=== PATIENT | male | born 1965 | race Two or more races ===

== ENCOUNTER 2024-12-04 18:29 | Inpatient (IN) | payer MEDICARE, OTHER ==
[~2024-12-04] VITALS: Ht 172.7 cm; Wt 65.0 kg
[2024-12-04] MEDS ORDERED: CARV25TA32 PO (20:00)
[2024-12-04] MEDS ORDERED: HYDR-4061 PO (20:00)
[2024-12-04] MEDS ORDERED: PANT20TA18 PO (20:00)
[2024-12-04] MEDS ORDERED: ROSU10TA72 PO (20:00)
[2024-12-04] MEDS ORDERED: DOCU-119 PO (20:01)
[2024-12-04] MEDS ORDERED: GABA-1216 PO (20:02)
[2024-12-04 20:24] LABS: BASOPHILS % (AUTO) 0.4 % (0.0-2.0); EOSINOPHILS % (AUTO) 12.3 % (1.0-6.0); HEMATOCRIT 28.7 % (41-53); HEMOGLOBIN 9.4 g/dL (13.5-17.5); LYMPHOCYTES # (AUTO) 0.7 K/uL (1.0-4.8); LYMPHOCYTES % (AUTO) 11.6 % (22.0-44.0); MEAN CORPUSCULAR HEMOGLOBIN 30.8 pg (26.0-34.0); MEAN CORPUSCULAR HGB CONC 32.9 G/dL (31.0-37.0); MEAN CORPUSCULAR VOLUME 94 fL (80-100); MONOCYTES # (AUTO) 0.5 K/uL (0.1-1.0); MONOCYTES % (AUTO) 8.6 % (2.0-9.0); NEUTROPHILS # (AUTO) 3.8 K/uL (1.8-7.7); NEUTROPHILS % (AUTO) 67.1 % (40.0-70.0); PLATELET COUNT (AUTO) 220 K/uL (150-450); RED BLOOD CELL COUNT(AUTO) 3.06 MIL/uL (4.50-5.90); WHITE BLOOD COUNT (AUTO) 5.7 K/uL (4.5-11.0)
[2024-12-04 20:26] LABS: ERYTHROCYTE SEDIMENTATION RATE 35 MM/HR (0-20)
[2024-12-04 20:33] LABS: ANION GAP 5 mmol/L (8-16); CALCIUM, TOTAL 9.1 mg/dL (8.8-10.5); CARBON DIOXIDE 35 mmol/L (22-29); CHLORIDE 94 mmol/L (98-107); CREATININE 3.16 mg/dL (0.60-1.30); GLOMERULAR FILTR. RATE CALC 20 mL/min (>60); GLUCOSE,RANDOM 106 mg/dL (70-110); POTASSIUM 3.9 mmol/L (3.5-5.1); SODIUM SERUM 134 mmol/L (136-145); UREA NITROGEN, BLOOD 31 mg/dL (7-18)
[2024-12-04 20:42] LABS: LACTIC ACID 0.6 mmol/L (0.4-2.0)
[2024-12-04] MEDS ORDERED: COLL30OI TP (20:43)
[2024-12-04] MEDS ORDERED: OXYC5TAB3 PO (20:43)
[2024-12-04] MEDS ORDERED: SEVE800T27 PO (20:43)
[2024-12-04] MEDS ORDERED: CLOP75TA32 PO (20:43)
[2024-12-04] MEDS ORDERED: AMLO10TA55 PO (20:43)
[2024-12-04] MEDS ORDERED: VANCOMYCIN 1GM/WATER(PEG/NADA) 200 ML IV ONE (20:45)
[2024-12-04] MEDS: PIPERACILLIN SODIUM/TAZOBACTAM 2.25 GM in DEXTROSE 5%-WATER 50 ML IV SCH (21:31)
[2024-12-04] MEDS: VANCOMYCIN HCL 1 GM/D5% WATER 200 ML IV ONE (21:31)
[2024-12-05] MEDS ORDERED: ONDANSETRON HCL 4 MG/2 ML VIAL IVP PRN (00:30)
[2024-12-05] MEDS ORDERED: 0.9% SODIUM CHLORIDE 10 ML SYRINGE IVP PRN (00:30)
[2024-12-05] MEDS ORDERED: VANCOMYCIN HCL 1 GM in DEXTROSE 5%-WATER 250 ML IV PRN (01:15)
[2024-12-05 02:41] VITALS: BP 143/80; PULSE 88; RESP 16; TEMP 97.7; O2SAT 100
[2024-12-05] MEDS ORDERED: SIME80TA12 PO (07:00)
[2024-12-05] MEDS ORDERED: CLOP75TA60 PO (07:00)
[2024-12-05] MEDS ORDERED: OXYC10TA48 PO (07:00)
[2024-12-05] MEDS ORDERED: MELA5TAB21 PO (07:03)
[2024-12-05] MEDS ORDERED: LORA-1000 PO (07:03)
[2024-12-05] MEDS: AmLODIPine BESYLATE 10 MG TABLET PO SCH (08:00)
[2024-12-05] MEDS: CARVEDILOL 25 MG TABLET PO SCH (08:00)
[2024-12-05] MEDS: DOCUSATE SODIUM 100 MG CAPSULE PO SCH (08:00)
[2024-12-05] MEDS: CLOPIDOGREL BISULFATE 75 MG TABLET PO SCH (08:00)
[2024-12-05] MEDS: ROSUVASTATIN CALCIUM 10 MG TABLET PO SCH (08:00)
[2024-12-05] MEDS: SEVELAMER CARBONATE 800 MG TABLET PO SCH (08:00)
[2024-12-05 08:16] LABS: CALCIUM, TOTAL 8.8 mg/dL (8.8-10.5); CREATININE 4.1 mg/dL (0.60-1.30); POTASSIUM 4.3 mmol/L (3.5-5.1); VANCOMYCIN,RANDOM 17.3 mcg/mL (25.0-50.0)
[2024-12-05] MEDS ORDERED: PANTOPRAZOLE 20MG TABLET PO SCH (09:00)
[2024-12-05 09:27] VITALS: BP 123/73; PULSE 85; RESP 19; TEMP 98.3; O2SAT 96
[2024-12-05] MEDS: PIPERACILLIN SODIUM/TAZOBACTAM 2.25 GM in DEXTROSE 5%-WATER 50 ML IV SCH (15:26)
[2024-12-05] MEDS: GABAPENTIN 100 MG CAPSULE PO SCH (20:44)
[2024-12-05 20:46] VITALS: BP 128/58; PULSE 84; RESP 18; TEMP 97.7; O2SAT 98
[2024-12-06 04:03] VITALS: BP 128/63; PULSE 86; RESP 16; TEMP 98; O2SAT 95
[2024-12-06 07:18] LABS: HEMOGLOBIN A1C 4.1 % (3.8-5.6)
[2024-12-06 07:21] LABS: BASOPHILS % (AUTO) 0.7 % (0.0-2.0); HEMATOCRIT 24.6 % (41-53); HEMOGLOBIN 8.4 g/dL (13.5-17.5); LYMPHOCYTES # (AUTO) 0.6 K/uL (1.0-4.8); LYMPHOCYTES % (AUTO) 10.5 % (22.0-44.0); MEAN CORPUSCULAR HEMOGLOBIN 31.9 pg (26.0-34.0); MEAN CORPUSCULAR HGB CONC 33.9 G/dL (31.0-37.0); MEAN CORPUSCULAR VOLUME 94 fL (80-100); MONOCYTES # (AUTO) 0.5 K/uL (0.1-1.0); MONOCYTES % (AUTO) 9.2 % (2.0-9.0); NEUTROPHILS # (AUTO) 3.2 K/uL (1.8-7.7); NEUTROPHILS % (AUTO) 60.9 % (40.0-70.0); PLATELET COUNT (AUTO) 172 K/uL (150-450); RED BLOOD CELL COUNT(AUTO) 2.62 MIL/uL (4.50-5.90); RED CELL DISTRIBUTION WIDTH 15.4 % (11.5-14.5); WHITE BLOOD COUNT (AUTO) 5.3 K/uL (4.5-11.0)
[2024-12-06 07:25] LABS: EOSINOPHILS % (AUTO) 18.7 % (1.0-6.0)
[2024-12-06 07:40] LABS: ALBUMIN 2.8 g/dL (3.4-5.0); BILIRUBIN,TOTAL 0.4 mg/dL (0.1-1.0); CALCIUM, TOTAL 8.7 mg/dL (8.8-10.5); CHOL/HDL RATIO 2.9 (4.2-7.3); MAGNESIUM 2.8 mg/dL (1.80-2.40); POTASSIUM 4.4 mmol/L (3.5-5.1); TOTAL PROTEIN, SERUM 6.3 g/dL (6.4-8.2)
[2024-12-06 08:14] VITALS: BP 143/68; PULSE 86; RESP 17; TEMP 97.8; O2SAT 100
[2024-12-06] MEDS ORDERED: PARICALCITOL 1 MCG CAPSULE PO PRN (16:15)
[2024-12-06 20:30] VITALS: BP 113/63; PULSE 86; RESP 18; TEMP 98.4; O2SAT 97
[2024-12-07] VITALS (12 sets, daily range): BP systolic 108–161; BP diastolic 58–88; PULSE 84–101; RESP 16–19; TEMP 97.8–98.7; O2SAT 97–99
[2024-12-07] MEDS ORDERED: LIDOCAINE/PF 2% 5 ML SYRINGE IVP ONE (06:37)
[2024-12-07] MEDS ORDERED: FentaNYL CITRATE PF 100 MCG/2 ML VIAL ONE ×2 (06:37→09:59)
[2024-12-07] MEDS ORDERED: MIDAZOLAM HCL 2 MG/2 ML VIAL ONE (06:37)
[2024-12-07] MEDS ORDERED: PROPOFOL 1% ISO-OSM 1000 MG/100 ML BOTTLE ONE (06:37)
[2024-12-07] MEDS ORDERED: PROPOFOL 1% 20 ML VIAL IVP ONE (06:37)
[2024-12-07] MEDS ORDERED: SODIUM CL IRRIG SOLN BAG 0 ML IRRIG ONE (08:33)
[2024-12-07] MEDS: SODIUM CHLORIDE 0.9% 1,000 ML IV ONE (08:52)
[2024-12-07] MEDS: EPOETIN ALFA 10,000 UNITS/ML 2 ML VIAL SQ SCH (09:00)
[2024-12-07] MEDS: FentaNYL CITRATE PF 100 MCG/2 ML VIAL IVP PRN (10:03)
[2024-12-07] MEDS: VANCOMYCIN HCL 750 MG in DEXTROSE 5%-WATER 250 ML IV ONE (22:26)
[2024-12-08 05:05] VITALS: BP 143/69; PULSE 94; RESP 18; TEMP 98.7; O2SAT 98
[2024-12-08 06:34] LABS: BASOPHILS % (AUTO) 1.1 % (0.0-2.0); HEMATOCRIT 25.8 % (41-53); HEMOGLOBIN 8.8 g/dL (13.5-17.5); LYMPHOCYTES # (AUTO) 0.7 K/uL (1.0-4.8); LYMPHOCYTES % (AUTO) 11.9 % (22.0-44.0); MEAN CORPUSCULAR HGB CONC 34.2 G/dL (31.0-37.0); MEAN CORPUSCULAR VOLUME 93 fL (80-100); MONOCYTES # (AUTO) 0.5 K/uL (0.1-1.0); MONOCYTES % (AUTO) 8.5 % (2.0-9.0); NEUTROPHILS # (AUTO) 3.7 K/uL (1.8-7.7); NEUTROPHILS % (AUTO) 61.9 % (40.0-70.0); PLATELET COUNT (AUTO) 162 K/uL (150-450); RED BLOOD CELL COUNT(AUTO) 2.77 MIL/uL (4.50-5.90); RED CELL DISTRIBUTION WIDTH 15.6 % (11.5-14.5)
[2024-12-08 06:40] LABS: EOSINOPHILS % (AUTO) 16.6 % (1.0-6.0)
[2024-12-08 06:49] LABS: ALBUMIN 2.8 g/dL (3.4-5.0); BILIRUBIN,TOTAL 0.5 mg/dL (0.1-1.0); CALCIUM, TOTAL 8.6 mg/dL (8.8-10.5); CREATININE 5.09 mg/dL (0.60-1.30); POTASSIUM 4.4 mmol/L (3.5-5.1); TOTAL PROTEIN, SERUM 6.5 g/dL (6.4-8.2)
[2024-12-08 09:07] VITALS: BP 150/68; PULSE 97; RESP 18; TEMP 99.1; O2SAT 100
[2024-12-08 17:24] VITALS: BP 136/76; PULSE 92; RESP 18; TEMP 98.5; O2SAT 98
[2024-12-08 19:43] VITALS: BP 135/87; PULSE 92; RESP 18; TEMP 98.6; O2SAT 97
[2024-12-09] VITALS (12 sets, daily range): BP systolic 99–144; BP diastolic 58–74; PULSE 80–96; RESP 18–20; TEMP 97.9–98.5; O2SAT 96–99
[2024-12-09] MEDS ORDERED: SODIUM CHLORIDE 0.9% 1,000 ML ONE (10:44)
[2024-12-10 05:35] VITALS: BP 132/61; PULSE 99; RESP 20; TEMP 98.4; O2SAT 96
[2024-12-10 08:55] VITALS: BP 122/50; PULSE 95; RESP 20; TEMP 98.4; O2SAT 97
[2024-12-10] MEDS: OXYGEN THERAPY IH SCH (10:21)
[2024-12-10] MEDS ORDERED: VANC1PIG IV (10:42)
[2024-12-10 16:32] VITALS: BP 111/55; PULSE 96; RESP 20; TEMP 97.5; O2SAT 94
[2024-12-10 19:36] VITALS: BP 139/64; PULSE 98; RESP 20; TEMP 97.5; O2SAT 99
[2024-12-10] MEDS: VANCOMYCIN HCL 750 MG in DEXTROSE 5%-WATER 250 ML IV ONE (20:17)
[2024-12-11] VITALS (12 sets, daily range): BP systolic 117–153; BP diastolic 56–111; PULSE 80–100; RESP 18; TEMP 97.8–98.5; O2SAT 96–100
[2024-12-11] MEDS ORDERED: SODIUM CHLORIDE 0.9% 2,000 ML ONE (14:42)
== END 2024-12-11 20:30 | DRG 463 ==
LOC: EMS 18:29 → EDH 12-05 00:22 → UNDOADMIN 12-05 00:49 → EDH 12-05 02:20 → 4E 12-05 02:20
PROVIDERS: ADMIT Family Medicine; ATTEND Family Medicine
PROC: 5A1D70Z Performance of Urinary Filtration, Intermittent, Less than 6 Hours Per Day (ICD-10-PCS; 2024-12-07)
PROC: 0JBP0ZZ Excision of Left Lower Leg Subcutaneous Tissue and Fascia, Open Approach (ICD-10-PCS; principal; 2024-12-07 09:05)
PROC: 5A1D70Z Performance of Urinary Filtration, Intermittent, Less than 6 Hours Per Day (ICD-10-PCS; 2024-12-09)
PROC: 5A1D70Z Performance of Urinary Filtration, Intermittent, Less than 6 Hours Per Day (ICD-10-PCS; 2024-12-11)
DX: T87.44 Infection of amputation stump, left lower extremity (principal); N18.6 End stage renal disease; E46 Unspecified protein-calorie malnutrition; N25.81 Secondary hyperparathyroidism of renal origin; I13.2 Hypertensive heart and chronic kidney disease with heart failure and with stage 5 chronic kidney disease, or end stage renal disease; E11.22 Type 2 diabetes mellitus with diabetic chronic kidney disease; I25.10 Atherosclerotic heart disease of native coronary artery without angina pectoris; E11.51 Type 2 diabetes mellitus with diabetic peripheral angiopathy without gangrene; E83.51 Hypocalcemia; E83.39 Other disorders of phosphorus metabolism; E11.40 Type 2 diabetes mellitus with diabetic neuropathy, unspecified; D63.1 Anemia in chronic kidney disease; E88.09 Other disorders of plasma-protein metabolism, not elsewhere classified; I50.9 Heart failure, unspecified; R62.7 Adult failure to thrive; K58.9 Irritable bowel syndrome, unspecified; Y83.8 Other surgical procedures as the cause of abnormal reaction of the patient, or of later complication, without mention of misadventure at the time of the procedure; Z99.2 Dependence on renal dialysis; Y92.89 Other specified places as the place of occurrence of the external cause; Z68.21 Body mass index [BMI] 21.0-21.9, adult
CPT/HCPCS: 80048; 80053; 80061; 80202; 83036; 83605; 83735; 85025; 85651; 87040; 87070; 87077; 87081; 87186; 87205; 87340; 90935; 93005; 99285; G0378; J0885; J2250; J2543; J2704; J3010; J3370; J3490; J7030; J7060